=== PATIENT | male | born 1945 | race Caucasian/White ===

== ENCOUNTER → 2016-09-01 | Outpatient (CLI) | payer MEDICARE, OTHER ==
--- NOTE | 2016-09-01 12:15 | US ---
EXAM DESCRIPTION: Renal ultrasound CLINICAL HISTORY: 70 years Male, CHRONIC KIDNEY DISEASE STAGE 3 TECHNIQUE: Grayscale imaging of the kidneys was performed. FINDINGS: The right kidney measures 10.8 cm in diameter. The left kidney measures 9.7 cm in diameter. The echogenic when compared to the liver. Roughly 7-8 mm stones noted within the right kidney and the left kidney. IMPRESSION: There is bilateral nephrolithiasis without evidence of obstruction. These densities measure approximately 7 -8 mm in diameter on both sides. Echogenic kidneys which can be seen in setting of medical renal disease. Electronically signed by: Jeff Wolff MD 09/01/2016 12:14 PM CDT
== END | disposition home or self-care (01) ==
LOC: US 09:06
PROVIDERS: ATTEND Student in an Organized Health Care Education/Training Program
DX: N18.3 Chronic kidney disease, stage 3 (moderate) (principal)

== ENCOUNTER → 2016-09-11 | Outpatient (CLI) | payer MEDICARE, OTHER | END | disposition home or self-care (01) | LOC: LAB.O 10:10 | PROVIDERS: ATTEND Student in an Organized Health Care Education/Training Program | DX: N18.3 Chronic kidney disease, stage 3 (moderate) (principal); D63.1 Anemia in chronic kidney disease; N39.0 Urinary tract infection, site not specified ==

== ENCOUNTER → 2017-03-31 | Outpatient (CLI) | payer MEDICARE, OTHER | LOC: LAB.O 14:10 | PROVIDERS: ATTEND Student in an Organized Health Care Education/Training Program | DX: N18.3 Chronic kidney disease, stage 3 (moderate) (principal); I10 Essential (primary) hypertension; E11.9 Type 2 diabetes mellitus without complications; E55.9 Vitamin D deficiency, unspecified; N39.0 Urinary tract infection, site not specified ==

== ENCOUNTER → 2017-04-13 | Outpatient (CLI) | payer MEDICARE, OTHER | END | disposition home or self-care (01) | LOC: LAB.O 08:05 | PROVIDERS: ATTEND General Practice | DX: E11.9 Type 2 diabetes mellitus without complications (principal); N18.9 Chronic kidney disease, unspecified; E66.01 Morbid (severe) obesity due to excess calories; R35.8 Other polyuria ==

== ENCOUNTER 2017-06-30 20:24 | Emergency (ER) | payer MEDICARE, OTHER ==
[2017-06-30] MEDS ORDERED: IPRATROPIUM/ALBUTEROL 3 ML VIAL NEB ONE (22:24)
[2017-06-30] MEDS ORDERED: predniSONE 20 MG TAB PO ONE (22:24)
--- NOTE | 2017-06-30 22:52 | RAD ---
EXAM DESCRIPTION: Chest,2 Views CLINICAL HISTORY: 71 years Male, sob COMPARISON: April 24, 2016. FINDINGS: Heart size is within normal limits. Hilar and mediastinal structures appear essentially unremarkable. The lungs are clear except for minimal linear subsegmental atelectasis or scarring in the left costophrenic angle. There is no evidence of pneumothorax or pleural effusion or congestive heart failure. No significant interval change is seen compared to the previous study. Note is made of degenerative changes in the thoracic spine and old right-sided rib fractures. IMPRESSION: No radiographic evidence of acute cardiopulmonary disease. Electronically signed by: Omari Rodriguez 06/30/2017 10:51 PM [facility]
--- NOTE | 2017-06-30 23:29 | ED.PDOC ---
History of Present Illness - General Chief Complaint: Respiratory Problem Stated Complaint: cough congestion x 3 weeks Time Seen by Provider: 06/30/17 22:24 Source: patient Exam Limitations: no limitations - History of Present Illness Initial Comments: the patient is a 71-year-old male with history of COPD but not taking any medications for presenting with cough and worsening shortness of breath progressive over the last 6 weeks. He is also living with his grandson who was diagnosed with flu B last week. This patient has had something of a cough and runny nose as well. He does smoke and has smoked for a very long time. His cough is minimally productive. No syncope or near-syncope. No chest pain. He actually went underwent multiple rounds of antibiotics at the outpatient clinic over the past 6 weeks. Timing/Duration: unsure Severity: moderate Improving Factors: nothing Worsening Factors: nothing Associated Symptoms: cough, malaise, shortness of breath Allergies/Adverse Reactions: Allergies NO KNOWN ALLERGY Allergy (Verified 04/24/16 07:49) Home Medications: Ambulatory Orders Aspirin [Aspirin Childrens] 81 mg PO DAILY 09/25/15 Glipizide 10 mg PO DAILY 09/25/15 Liraglutide [Victoza] 18 mg SC DAILY 09/25/15 Lisinopril 5 mg PO DAILY 04/24/16 Pantoprazole Sodium 20 mg PO DAILY 04/24/16 Trazodone HCl 150 mg PO BEDTIME 04/24/16 Review of Systems - Review of Systems Constitutional: States: malaise EENTM: States: nose congestion Respiratory: States: cough, short of breath, wheezing Cardiology: States: no symptoms reported Gastrointestinal/Abdominal: States: no symptoms reported Genitourinary: States: no symptoms reported Musculoskeletal: States: no symptoms reported Skin: States: no symptoms reported Neurological: States: no symptoms reported Endocrine: States: no symptoms reported All other Systems: No Change from Baseline Past Medical History (General) - Patient Medical History Hx Seizures: No Hx Stroke: No Hx Dementia: No Hx Asthma: No Hx of COPD: No Hx Cardiac Disorders: No Hx Congestive Heart Failure: No Hx Pacemaker: No Hx Hypertension: No Hx Thyroid Disease: No Hx Diabetes: Yes Hx Gastroesophageal Reflux: Yes Hx Renal Disease: No Hx Cancer: No Hx of HIV: No Hx Hepatitis C: No Hx MRSA: No - Vaccination History Hx Tetanus, Diphtheria Vaccination: No Hx Influenza Vaccination: No Hx Pneumococcal Vaccination: No - Social History Hx Tobacco Use: Yes Hx Chewing Tobacco Use: No Hx Alcohol Use: Yes Hx Substance Use: No Hx Substance Use Treatment: No Hx Depression: No Hx Physical Abuse: No Hx Emotional Abuse: No Hx Suspected Abuse: No - Female History Patient : No - Triage Comment ED Triage Comment: Presents to ED---POv--Amb.---c/o cough, congestion, PC cought darl odom color, known smoker, x 3weeks now. Family Medical History - Family History Mother Family History: Unknown Living Status: Physical Exam - Physical Exam General Appearance: Alert, Comfortable, No apparent distress Eye Exam: bilateral normal Ears, Nose, Throat: hearing grossly normal, normal ENT inspection, normal pharynx Neck: non-tender, full range of motion, supple Respiratory: chest non-tender, no respiratory distress, no accessory muscle use , rhonchi - cattered, wheezing - scattered Cardiovascular/Chest: normal peripheral pulses, regular rate, rhythm, no edema Peripheral Pulses: radial,right: 2+, radial,left: 2+, dorsalis pedis,right: 2+, dorsalis pedis,left: 2+ Gastrointestinal/Abdominal: non tender, soft Rectal Exam: deferred Back Exam: normal inspection, no CVA tenderness, no vertebral tenderness Extremity: normal range of motion, non-tender, normal inspection, normal capillary refill 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 The patient will be written for a Combivent inhaler as well as duo nebs and a nebulizer machine. He can get filled whichever is cheaper for him. He'll also be placed on prednisone for the next week at 20 mg daily. He is also going to be placed on the treatment course of Tamiflu given his direct recent exposure and his history of COPD. The patient is to stop smoking. He is not hypoxic or in respiratory distress. ER warnings were given for any significant worsening. He should follow up with his primary care doctor early next week. - Results/Orders Results/Orders: chest x-ray shows no definitive infiltrate. He does have changes consistent with COPD. EKG shows normal sinus rhythm with a first-degree AV block and a right bundle branch block. No acute definitive ST segment changes otherwise. Normal QT corrected interval. Departure - Departure Clinical Impression: COPD with acute exacerbation Disposition: Discharge to Home or Self Care Condition: Good Departure Forms: ED Discharge - Pt. Copy, Patient Portal Self Enrollment Instructions: DI for Chronic Obstructive Pulmonary Disease Diet: regular diet Activity: increase activity as tolerated Referrals: New Gu MD [Primary Care Provider] - 1-5 Days Home Medications: Ambulatory Orders Aspirin [Aspirin Childrens] 81 mg PO DAILY 09/25/15 Glipizide 10 mg PO DAILY 09/25/15 Liraglutide [Victoza] 18 mg SC DAILY 09/25/15 Lisinopril 5 mg PO DAILY 04/24/16 Pantoprazole Sodium 20 mg PO DAILY 04/24/16 Trazodone HCl 150 mg PO BEDTIME 04/24/16 Additional Instructions: the patient is a 71-year-old male presenting with what appears to be a COPD exacerbation. The patient will be written for a Combivent inhaler as well as duo nebs and a nebulizer machine. He can get filled whichever is cheaper for him. He'll also be placed on prednisone for the next week at 20 mg daily. He is also going to be placed on the treatment course of Tamiflu given his direct recent exposure and his history of COPD. The patient is to stop smoking. He is not hypoxic or in respiratory distress. ER warnings were given for any significant worsening. He should follow up with his primary care doctor early next week.
[2017-07-01 00:02] VITALS: BP 116/66; TEMP 95.8; O2SAT 98
== END 2017-07-01 00:03 | disposition home or self-care (01) ==
LOC: ER 20:24
DX: J44.1 Chronic obstructive pulmonary disease with (acute) exacerbation (principal); I44.0 Atrioventricular block, first degree; I45.10 Unspecified right bundle-branch block; E11.9 Type 2 diabetes mellitus without complications; K21.9 Gastro-esophageal reflux disease without esophagitis; Z87.891 Personal history of nicotine dependence; Z79.82 Long term (current) use of aspirin
CPT/HCPCS: 71046; 93005; 94640; J7512; J7620

== ENCOUNTER → 2017-11-25 | Outpatient (CLI) | payer MEDICARE, OTHER | LOC: LAB.O 08:55 | PROVIDERS: ATTEND Student in an Organized Health Care Education/Training Program | DX: N18.3 Chronic kidney disease, stage 3 (moderate) (principal); I10 Essential (primary) hypertension; E11.9 Type 2 diabetes mellitus without complications; G47.33 Obstructive sleep apnea (adult) (pediatric); D63.1 Anemia in chronic kidney disease; N25.81 Secondary hyperparathyroidism of renal origin; E55.9 Vitamin D deficiency, unspecified; E87.8 Other disorders of electrolyte and fluid balance, not elsewhere classified; N39.0 Urinary tract infection, site not specified; Z72.0 Tobacco use ==

== ENCOUNTER → 2018-05-27 | Outpatient (CLI) | payer MEDICARE, OTHER | LOC: LAB.O 12:40 | PROVIDERS: ATTEND Student in an Organized Health Care Education/Training Program | DX: N18.3 Chronic kidney disease, stage 3 (moderate) (principal); D63.1 Anemia in chronic kidney disease; N25.81 Secondary hyperparathyroidism of renal origin; E55.9 Vitamin D deficiency, unspecified; N39.0 Urinary tract infection, site not specified ==

== ENCOUNTER 2018-12-12 20:29 | Emergency (ER) | payer MEDICARE, OTHER ==
--- NOTE | 2018-12-12 20:48 | ED.PDOC ---
History of Present Illness - General Chief Complaint: General Stated Complaint: cramped pointer finger, arm pain, hip pain Time Seen by Provider: 12/12/18 20:44 Source: RN notes reviewed, EMS notes reviewed Additional Information: 73 YEAR OLD WHITE MALE PRESENTS WITH SUDDEN ONSET OF PAIN IN THE LEFTINDEX FINGER WHEREIN HE FELT HE COULD NOT FLEX THE INTER PHALANGEAL JOINTS HE ALSO EXPERIENCED PAIN RADIATING TO THE FOREARM HE REPORTS NO NUMBNESS WEAKNESS EITHER IN THE HAND ARM LEG OR HIS FACE AT THE TIME OF EXAM HIS SYMPTOMS ARE TOTALLY RESOLVED AND HE FEELS BACK TO HIS NORMAL STATE OF HEALTH - History of Present Illness Timing/Duration: unsure Severity: mild Improving Factors: nothing Associated Symptoms: denies symptoms Allergies/Adverse Reactions: Allergies NO KNOWN ALLERGY Allergy (Verified 12/12/18 20:51) Home Medications: Ambulatory Orders Aspirin [Aspirin Childrens] 81 mg PO DAILY 09/25/15 Glipizide 10 mg PO DAILY 09/25/15 Liraglutide [Victoza] 18 mg SC DAILY 09/25/15 Lisinopril 5 mg PO DAILY 04/24/16 Pantoprazole Sodium 20 mg PO DAILY 04/24/16 Trazodone HCl 150 mg PO BEDTIME 04/24/16 Review of Systems - Review of Systems Constitutional: States: no symptoms reported EENTM: States: no symptoms reported Respiratory: States: no symptoms reported Cardiology: States: no symptoms reported Gastrointestinal/Abdominal: States: no symptoms reported Genitourinary: States: no symptoms reported Musculoskeletal: States: no symptoms reported Skin: States: no symptoms reported Neurological: States: no symptoms reported Endocrine: States: no symptoms reported Hematologic/Lymphatic: States: no symptoms reported Past Medical History (General) - Patient Medical History Hx Seizures: No Hx Stroke: No Hx Dementia: No Hx Asthma: No Hx of COPD: No Hx Cardiac Disorders: No Hx Congestive Heart Failure: No Hx Pacemaker: No Hx Hypertension: No Hx Thyroid Disease: No Hx Diabetes: Yes Hx Gastroesophageal Reflux: Yes Hx Renal Disease: No Hx Cancer: No Hx of HIV: No Hx Hepatitis C: No Hx MRSA: No - Vaccination History Hx Tetanus, Diphtheria Vaccination: No Hx Influenza Vaccination: No Hx Pneumococcal Vaccination: No - Social History Hx Tobacco Use: Yes Hx Chewing Tobacco Use: No Hx Alcohol Use: Yes Hx Substance Use: No Hx Substance Use Treatment: No Hx Depression: No Hx Physical Abuse: No Hx Emotional Abuse: No Hx Suspected Abuse: No - Female History Patient : No Family Medical History - Family History Mother Family History: Unknown Living Status: Physical Exam - Physical Exam General Appearance: Alert Eye Exam: bilateral normal Ears, Nose, Throat: hearing grossly normal, normal ENT inspection, normal pharynx Neck: non-tender, full range of motion, supple Respiratory: chest non-tender, lungs clear, normal breath sounds, no respiratory distress, no accessory muscle use Cardiovascular/Chest: normal peripheral pulses, regular rate, rhythm, no edema, no gallop, no JVD Peripheral Pulses: radial,right: 2+, radial,left: 2+, femoral,right: 2+, femoral,left: 2+, popliteal,right: 2+, popliteal,left: 2+ Gastrointestinal/Abdominal: normal bowel sounds, non tender, soft, no organomegaly, no pulsatile mass Back Exam: normal inspection, no CVA tenderness, no vertebral tenderness 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 Copy, Patient Portal Self Enrollment Referrals: New Gu MD [Primary Care Provider] - 1-2 Weeks Home Medications: Ambulatory Orders Aspirin [Aspirin Childrens] 81 mg PO DAILY 09/25/15 Glipizide 10 mg PO DAILY 09/25/15 Liraglutide [Victoza] 18 mg SC DAILY 09/25/15 Lisinopril 5 mg PO DAILY 04/24/16 Pantoprazole Sodium 20 mg PO DAILY 04/24/16 Trazodone HCl 150 mg PO BEDTIME 04/24/16
[2018-12-12 20:50] VITALS: TEMP 98.2; O2SAT 99
[2018-12-12 21:43] VITALS: BP 114/88
== END 2018-12-12 21:55 | disposition home or self-care (01) ==
LOC: ER 20:29
DX: G62.9 Polyneuropathy, unspecified (principal); E11.9 Type 2 diabetes mellitus without complications; K21.9 Gastro-esophageal reflux disease without esophagitis; Z87.891 Personal history of nicotine dependence; Z79.82 Long term (current) use of aspirin; Z79.899 Other long term (current) drug therapy

== ENCOUNTER → 2019-02-02 | Outpatient (CLI) | payer MEDICARE, OTHER | LOC: LAB.O 08:55 | PROVIDERS: ATTEND Student in an Organized Health Care Education/Training Program | DX: N18.3 Chronic kidney disease, stage 3 (moderate) (principal); I10 Essential (primary) hypertension; E11.9 Type 2 diabetes mellitus without complications; G47.33 Obstructive sleep apnea (adult) (pediatric); E55.9 Vitamin D deficiency, unspecified; N25.81 Secondary hyperparathyroidism of renal origin; Z72.0 Tobacco use ==

== ENCOUNTER → 2019-02-15 | Outpatient (CLI) | payer MEDICARE, OTHER | LOC: LAB.O 08:04 | PROVIDERS: ATTEND General Practice | DX: E11.9 Type 2 diabetes mellitus without complications (principal); E66.01 Morbid (severe) obesity due to excess calories; N18.9 Chronic kidney disease, unspecified; J44.9 Chronic obstructive pulmonary disease, unspecified; N42.9 Disorder of prostate, unspecified ==

== ENCOUNTER → 2019-02-20 | Outpatient (CLI) | payer MEDICARE, OTHER | LOC: LAB.O 12:18 | PROVIDERS: ATTEND Student in an Organized Health Care Education/Training Program | DX: N18.3 Chronic kidney disease, stage 3 (moderate) (principal); E55.9 Vitamin D deficiency, unspecified; D63.1 Anemia in chronic kidney disease; N39.0 Urinary tract infection, site not specified; N25.81 Secondary hyperparathyroidism of renal origin; E11.9 Type 2 diabetes mellitus without complications ==

== ENCOUNTER → 2019-10-31 | Outpatient (CLI) | payer MEDICARE, OTHER | LOC: LAB.O 07:54 | PROVIDERS: ATTEND General Practice | DX: I10 Essential (primary) hypertension (principal); E11.9 Type 2 diabetes mellitus without complications; N42.9 Disorder of prostate, unspecified ==

== ENCOUNTER → 2020-03-12 | Outpatient (CLI) | payer MEDICARE, OTHER | LOC: LAB.O 08:30 | PROVIDERS: ATTEND General Practice | DX: E11.9 Type 2 diabetes mellitus without complications (principal); I10 Essential (primary) hypertension; R53.83 Other fatigue; Z12.5 Encounter for screening for malignant neoplasm of prostate | CPT/HCPCS: 36415; 80053; 80061; 83036; G0103 ==

== ENCOUNTER → 2020-04-11 | Outpatient (CLI) | payer MEDICARE, OTHER ==
--- NOTE | 2020-04-11 14:27 | RAD ---
EXAM DESCRIPTION: Shoulder,Right 2 or More Views CLINICAL HISTORY: pain in right shoulder COMPARISON: None Available. TECHNIQUE: X-ray 4 views right shoulder FINDINGS: There is good internal and external rotation. There is no fracture or bone lesion. Calcification in the rotator cuff noted on AP views. IMPRESSION: 1. Calcific tendinitis rotator cuff Electronically signed by: Rizwan Hilliard MD 04/11/2020 2:25 PM [facility]
== END ==
LOC: RAD 08:01
PROVIDERS: ATTEND Orthopaedic Surgery
DX: M75.81 Other shoulder lesions, right shoulder (principal)

== ENCOUNTER 2020-05-03 10:08 | Inpatient (IN) | payer MEDICARE, OTHER ==
[2020-05-03] MEDS ORDERED: ONDANSETRON INJ 4 MG/2 ML VIAL IV ONE (10:10)
[2020-05-03] MEDS ORDERED: SODIUM CHLORIDE 0.9% (FLUSH) 10 ML SYG IV PRN ×2 (10:10→18:55)
[2020-05-03] MEDS ORDERED: SODIUM CHLORIDE 0.9% 1000ML 1,000 ML IVS ONE ×3 (10:11→15:49)
--- NOTE | 2020-05-03 10:12 | ED.PDOC ---
History of Present Illness - General Time Seen by Provider: 05/03/20 10:10 Source: patient - History of Present Illness Initial Comments: 74-year-old male with past medical history of GERD, hypertension, diabetes who presents with chief complaint of nausea, vomiting, diarrhea. Rapid onset around 2 hours ago at home. Reports has had several rounds of nonbloody nonbilious emesis which looks like the spicy Cheetos he ate last night. He also reports ab out 7 episodes of dark watery diarrhea. In addition he has constant mild 3/10 severity abdominal discomfort to the left lower quadrant without radiation, slightly worse with vomiting or diarrhea, no medications taken for relief. He also reports he broke out into a cold sweat earlier which is now resolved. Denies any chest pain, cough, dyspnea, fevers, sore throat. He does report history of reflux and history of upper GI bleed 12 years ago. Allergies/Adverse Reactions: Allergies NO KNOWN ALLERGY Allergy (Verified 12/12/18 20:51) Home Medications: Ambulatory Orders Aspirin [Aspirin Childrens] 81 mg PO DAILY 09/25/15 Glipizide 10 mg PO DAILY 09/25/15 Liraglutide [Victoza] 18 mg SC DAILY 09/25/15 Lisinopril 5 mg PO DAILY 04/24/16 Pantoprazole Sodium 20 mg PO DAILY 04/24/16 Trazodone HCl 150 mg PO BEDTIME 04/24/16 Review of Systems - Review of Systems Review of Systems: 05/03/20 10:28 as per HPI All other Systems: Reviewed and Negative Past Medical History (General) - Patient Medical History Hx Seizures: No Hx Stroke: No Hx Dementia: No Hx Asthma: No Hx of COPD: No Hx Cardiac Disorders: No Hx Congestive Heart Failure: No Hx Pacemaker: No Hx Hypertension: No Hx Thyroid Disease: No Hx Diabetes: Yes Hx Gastroesophageal Reflux: Yes Hx Renal Disease: No Hx Cancer: No Hx of HIV: No Hx Hepatitis C: No Hx MRSA: No - Vaccination History Hx Tetanus, Diphtheria Vaccination: No Hx Influenza Vaccination: No Hx Pneumococcal Vaccination: No - Social History Hx Tobacco Use: Yes Hx Chewing Tobacco Use: No Hx Alcohol Use: Yes Hx Substance Use: No Hx Substance Use Treatment: No Hx Depression: No Hx Physical Abuse: No Hx Emotional Abuse: No Hx Suspected Abuse: No - Female History Patient : No Family Medical History - Family History Mother Family History: Unknown Living Status: Physical Exam - Physical Exam General Appearance: Alert, Comfortable, No apparent distress, Obese Eye Exam: bilateral normal Ears, Nose, Throat: normal ENT inspection, normal pharynx Neck: non-tender, full range of motion, supple, normal inspection Respiratory: chest non-tender, lungs clear, normal breath sounds, no respiratory distress, no accessory muscle use Cardiovascular/Chest: normal peripheral pulses, no edema, no gallop, no JVD, no murmur, tachycardia Peripheral Pulses: radial,right: 2+, radial,left: 2+ Gastrointestinal/Abdominal: non tender, soft, no organomegaly, abnormal bowel sounds - hyperactive Back Exam: normal inspection, no CVA tenderness, no vertebral tenderness Extremity: normal range of motion, non-tender, normal inspection, no pedal edema, no calf tenderness 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 difficile, colitis, ischemic colitis, pancreatitis, UTI, viral infection, COVID-19, flu, other -Obtain blood work, lactate, rapid Covid and flu, abdominal work-up, stool cultures -Place PIV, 1 L normal saline bolus, Zofran 4 mg IV 05/03/20 16:04 -Patient's labs revealed WBC 13,000 with left shift without bandemia. Lactic acid initially 2.9, improved to 2.6 after 2 L IV fluid bolus. Rapid flu and Covid testing were negative. otherwise patient does have mild acute kidney injury likely from dehydration and gastroenteritis. His heart rate is improved but still with tachycardia, around 110 currently. Otherwise he remained stable and states he is feeling much better. His stool occult blood was negative. Stool studies were sent. CT imaging revealed fluid-filled small bowel consistent with likely enteritis. There was diverticulosis without evidence of diverticulitis. No other evidence of focal bacterial infection was noted. -I discussed all of the findings with the patient. Advised we will need to admit for acute gastroenteritis, sepsis, lactic acidosis, moderate dehydration. Blood cultures were drawn and will begin broad-spectrum IV antibiotics with Zosyn 3.375 g IV. We will give another 1 L NS bolus. -I discussed the patient with Mary Judd who accepts for admission Parker Balderrama MD Billing #[id number] 05/03/20 10:10 Sodium Chloride 0.9% (Flush) [Saline Flush Syringe] 10 ml IV PRN PRN 05/03/20 10:30 EKG STAT 05/03/20 11:16 Hold Metformin x 48Hrs [id number] 05/03/20 12:05 BLOOD CULTURE Stat 05/03/20 12:57 CLOSTRIDIUM DIFFICILE AG/TOXIN Stat STOOL CULTURE Stat 05/03/20 15:49 Piperacillin/Tazobactam [Zosyn] 3.375 gm Sodium Chloride 0.9% 100Ml [NS (NACL 0.9%) 100ml] 100 ml IVPB ONCE Sodium Chloride 0.9% 1000ML [Ns 1000 ml] 1,000 ml IVS ONCE Laboratory Results - last 24 hr 05/03/20 05/03/20 05/03/20 10:25 10:25 10:25 WBC 13.2 H RBC 5.78 Hgb 19.6 H Hct 57.2 H MCV 99.1 H MCH 33.9 H MCHC 34.3 RDW 14.0 Plt Count 248 MPV 11.0 H Absolute Neuts (auto) 11.60 H Absolute Lymphs (auto) 0.90 L Absolute Monos (auto) 0.50 Absolute Eos (auto) 0.10 Absolute Basos (auto) 0.00 Neutrophils % 87.8 H Lymphocytes % 7.2 L Monocytes % 4.0 Eosinophils % 0.7 L Basophils % 0.3 Sodium 140 Potassium 4.0 Chloride 96 L Carbon Dioxide 31 Anion Gap 17.0 BUN 17 Creatinine 1.40 H BUN/Creatinine Ratio 12.1 Random Glucose 264 H Serum Osmolality 290.1 Lactic Acid Calcium 9.6 Total Bilirubin 0.9 Direct Bilirubin 0.1 Indirect Bilirubin 0.8 AST 22 ALT 23 Alkaline Phosphatase 123 H Troponin I Serum Total Protein 7.9 Albumin 4.2 Lipase 130 H Urine Color Urine Appearance Urine pH Ur Specific [place] Urine Protein Urine Glucose (UA) Urine Ketones Urine Blood Urine Nitrite Urine Bilirubin Urine Urobilinogen Ur Leukocyte Esterase Urine RBC Urine WBC Ur Epithelial Cells Calcium Oxalate Crystal Amorphous Sediment Urine Bacteria Stool Occult Blood 05/03/20 05/03/20 05/03/20 10:25 10:25 13:02 WBC RBC Hgb Hct MCV MCH MCHC RDW Plt Count MPV Absolute Neuts (auto) Absolute Lymphs (auto) Absolute Monos (auto) Absolute Eos (auto) Absolute Basos (auto) Neutrophils % Lymphocytes % Monocytes % Eosinophils % Basophils % Sodium Potassium Chloride Carbon Dioxide Anion Gap BUN Creatinine BUN/Creatinine Ratio Random Glucose Serum Osmolality Lactic Acid 2.9 H* Calcium Total Bilirubin Direct Bilirubin Indirect Bilirubin AST ALT Alkaline Phosphatase Troponin I < 0.02 Serum Total Protein Albumin Lipase Urine Color Urine Appearance Urine pH Ur Specific [place] Urine Protein Urine Glucose (UA) Urine Ketones Urine Blood Urine Nitrite Urine Bilirubin Urine Urobilinogen Ur Leukocyte Esterase Urine RBC Urine WBC Ur Epithelial Cells Calcium Oxalate Crystal Amorphous Sediment Urine Bacteria Stool Occult Blood Negative 05/03/20 05/03/20 14:46 15:15 WBC RBC Hgb Hct MCV MCH MCHC RDW Plt Count MPV Absolute Neuts (auto) Absolute Lymphs (auto) Absolute Monos (auto) Absolute Eos (auto) Absolute Basos (auto) Neutrophils % Lymphocytes % Monocytes % Eosinophils % Basophils % Sodium Potassium Chloride Carbon Dioxide Anion Gap BUN Creatinine BUN/Creatinine Ratio Random Glucose Serum Osmolality Lactic Acid 2.6 H* Calcium Total Bilirubin Direct Bilirubin Indirect Bilirubin AST ALT Alkaline Phosphatase Troponin I Serum Total Protein Albumin Lipase Urine Color Yellow Urine Appearance Clear Urine pH 5.5 Ur Specific [place] 1.010 Urine Protein Negative Urine Glucose (UA) 500 H Urine Ketones Trace Urine Blood Trace-intact H Urine Nitrite Negative Urine Bilirubin Negative Urine Urobilinogen 0.2 Ur Leukocyte Esterase Negative Urine RBC 1-3 Urine WBC 0 Ur Epithelial Cells 1-3 Calcium Oxalate Crystal 1+ Amorphous Sediment 1+ Urine Bacteria 0 Stool Occult Blood - EKG/XRAY/CT EKG: Sinus, Tachy - Sinus tachycardia with right bundle branch block, heart rate 130, no ST elevations noted, no Q waves, minimal ST segment depressions noted in anteroseptal leads likely repolarization abnormality, axis normal, intervals normal, compared to 06/30/2017 EKG sinus tachycardia appears new Departure - Departure Clinical Impression: Gastroenteritis, Lactic acidosis Sepsis Qualifiers: Sepsis type: sepsis due to unspecified organism Sepsis acute organ dysfunction status: without acute organ dysfunction Qualified Code(s): A41.9 - Sepsis, unspecified organism Time of Disposition: 16:08 Disposition: Admit Patient Condition: Fair Diet: diabetic diet Referrals: New Gu MD [Primary Care Provider] - 1-2 Weeks Home Medications: Ambulatory Orders Aspirin [Aspirin Childrens] 81 mg PO DAILY 09/25/15 Glipizide 10 mg PO DAILY 09/25/15 Liraglutide [Victoza] 18 mg SC DAILY 09/25/15 Lisinopril 5 mg PO DAILY 04/24/16 Pantoprazole Sodium 20 mg PO DAILY 04/24/16 Trazodone HCl 150 mg PO BEDTIME 04/24/16 Decision To Admit - Decistion To Admit Decision to Admit Reason: Admit from ER Decision to Admit Date: 05/03/20 Decision to Admit Time: 16:08
--- NOTE | 2020-05-03 11:09 | RAD ---
EXAM DESCRIPTION: Chest,1 View x-ray CLINICAL HISTORY: 74 years Male, n/v/d, cold sweats COMPARISON: 06/30/2017 IMPRESSION: Heart size and pulmonary vascularity are within normal limits. Mild patchy bilateral airspace opacities, greatest in the left lower lung. The findings are concerning for multifocal pneumonia. Covid 19 may have this appearance. No pleural effusion or pneumothorax. No acute osseous abnormality. Electronically signed by: Aleksander Davey MD 05/03/2020 11:07 AM [facility]
[2020-05-03] MEDS ORDERED: ALUM & MAG HYDROX-SIMETHICONE 30 ML, LIDOCAINE VISCOUS 2% 15 ML PO ONE ×2 (13:43)
--- NOTE | 2020-05-03 14:16 | CT ---
EXAM: Abdomen/Pelvis w/Contrast INDICATION: LLQ pain, n/v/d . COMPARISON: CT abdomen pelvis with contrast 04/24/2016 TECHNIQUE: CT of the abdomen and pelvis was performed following the administration of IV contrast. Multiple axial images and multiplanar reconstructions were generated. This exam was performed according to our departmental dose-optimization program, which includes automated exposure control, adjustment of the mA and/or kV according to patient size and/or use of iterative reconstruction technique. FINDINGS: Visualized chest: The visualized lung bases are clear. Heart size is within normal limits. Liver: Unremarkable appearance of the liver. Gallbladder: The gallbladder is surgically absent. Pancreas: Unremarkable appearance of the pancreas. Spleen: Unremarkable appearance of the spleen. Adrenal glands: Unremarkable appearance of the adrenal glands. Kidneys, ureters, bladder: The left kidney is atrophic as noted on the prior examination. No striated nephrograms. No hydronephrosis. Bilateral nonobstructing renal stones. 1.5 cm right kidney lower pole parapelvic cyst (axial series 2 image 40). Unremarkable appearance of the visualized portions of the ureters. Unremarkable appearance of the urinary bladder. Stomach and bowel: The stomach is mildly distended with fluid but otherwise unremarkable. Several loops of fluid-filled small bowel are mildly distended but not frankly dilated. Colonic diverticulosis without evidence for acute diverticulitis. The appendix is identified and appears normal. Prostate: Prostatic calcifications are noted. Peritoneum: No free fluid. No pneumoperitoneum. Lymph nodes: No lymphadenopathy. Vasculature: An infrarenal abdominal aortic aneurysm has increased in size since the prior examination of 04/24/2016, now measuring up to approximately 4.6 cm in greatest diameter (axial series 2 image 36). 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 This aneurysm extends approximately 5.5-6 cm in craniocaudal dimension. Below this, the diameter of the aorta just above the iliac bifurcation measures up to 3 cm AP (axial series 2 image 44). Bones: No acute fracture. No destructive osseous lesion. Degenerative changes in the spine and hips. Body wall: Tiny fat-containing umbilical hernia. Otherwise unremarkable appearance of the visualized body wall soft tissues. IMPRESSION: 1. Several loops of fluid-filled small bowel are mildly distended but not frankly dilated. This could represent enteritis. No convincing evidence for mechanical bowel obstruction. 2. A 4.6 cm infrarenal abdominal aortic aneurysm has increased in size from the prior examination of 04/24/2016. Recommend follow-up every 6 months and vascular consultation. (J Am Amber Radiol 2013;10 (10):789-794.) 3. Colonic diverticulosis without evidence for acute diverticulitis. 4. Simple right renal cyst. 5. Atrophic left kidney. 6. Nonobstructing renal stones. 7. Cholecystectomy. 8. Additional findings as described above. Electronically signed by: Margaret Samano MD 05/03/2020 2:14 PM [facility]
[2020-05-03] MEDS ORDERED: PANTOPRAZOLE SODIUM IV 40 MG VIAL IV ONE (14:28)
[2020-05-03] MEDS ORDERED: PIPERACILLIN/TAZOBACTAM 3.375 GM in SODIUM CHLORIDE 0.9% 100ML 100 ML IVPB ONE (15:49)
--- NOTE | 2020-05-03 17:16 | HP ---
SUPERVISING PHYSICIAN: Jayce Vo MD CHIEF COMPLAINT: Nausea, vomiting, diarrhea. HISTORY OF PRESENT ILLNESS: This is a 73 year-old male patient who presented to the Emergency Room with several hours of nausea, vomiting, diarrhea. It is worse after he had several rounds of emesis as well as several-day episodes of dark, watery diarrhea. He did not think there was any blood in either. He had had some abdominal discomfort but mostly on the left side. He also said he had chills. He does have a history of gastroesophageal reflux disease, hypertension and diabetes. His initial vital signs were temperature 97, heart rate 136, blood pressure 104/71, respiratory rate 20, oxygen saturation 95%. Laboratory studies showed WBC of 13.2, hemoglobin 19.6, hematocrit 67.2. He had a left shift on his differential. Sodium 140, potassium 4, chloride 96, glucose 264. [id number] 10.7. Initial lactic acid 2.9. Followup lactic acid 2.6. Alkaline phosphatase 123, lipase 130. Urinalysis was unremarkable. Stool for occult blood was negative. Respiratory panel showed negative for Covid-19. Stool culture is pending. Influenza PCR both negative for A and B flu. Blood cultures were drawn. Chest x-ray shows heart size and pulmonary vascularity are within normal limits. Mild hazy bilateral airspace opacities greater in the left lower lung. The findings are concerning for multifocal pneumonia. Covid-19 may have this appearance. No osseous abnormalities. He was given several liters of fluids and Zosyn, Pantoprazole and Zofran. He was admitted to the Floor in stable condition. PAST MEDICAL HISTORY: 1. Diabetes mellitus type 2. 2. Renal insufficiency. 3. Gastroesophageal reflux disease. 4. Benign prostatic hypertrophy. 5. Kidney stones. 6. Tobacco abuse. PAST SURGICAL HISTORY: 1. Left ulnar nerve release. 2. Colonoscopy. 3. Bilateral orchiopexies for left testicular torsion. 4. Renal stents due to complications from kidney stones. CURRENT MEDICATIONS: Per the EMR awaiting verification. ALLERGIES: No known drug allergies. FAMILY HISTORY: Positive for colon cancer, rheumatoid arthritis, diabetes chronic obstructive pulmonary disease and alcoholism. SOCIAL HISTORY: He is retired. He currently smokes 3/4 to one pack of cigarettes daily. There is no history of illegal drug use or alcohol use. REVIEW OF SYSTEMS: GENERAL: Positive for chills, negative for fever or weight changes. HEENT: Negative for sinus symptoms, ear pain, vision changes, sore throat. RESPIRATORY: Negative for coughing, wheezing, shortness of breath CARDIAC: Negative for chest pain, palpitations, tachycardia. GI: As per history of present illness. GENITOURINARY: Negative for hematuria, dysuria, polyuria. SKIN: Negative for lesions or rashes. NEUROLOGICAL: Negative for headaches, dizziness or seizures. PHYSICAL EXAMINATION: VITAL SIGNS: Temperature 98.2, heart rate 110, blood pressure 134/100, respiratory rate 20, oxygen saturation 97% on room air. GENERAL: This is a 74 year-old male patient who is lying in his hospital bed. He is in no acute distress. HEENT: Normocephalic and atraumatic. Pupils are equal and reactive. Oropharynx is clear. NECK: Supple without mass. CHEST: Essentially clear to auscultation bilaterally. Somewhat diminished on the left side. CARDIOVASCULAR: Tachycardiac rate, regular rhythm. ABDOMEN: Soft, diffusely tender, especially on the left side. Bowel sounds are positive. SKIN: Warm and dry. NEUROLOGIC: Awake, alert, and oriented x3. Cranial nerves II through XII are grossly intact as tested. Labs and films are as per the history of present illness. ASSESSMENT: 1. Sepsis of unknown etiology, may be enteritis and/or left lower lobe pneumonia. 2. Enteritis. 3. Left lower lobe pneumonia, community acquired. 4. Renal insufficiency. 5. Nausea, vomiting, diarrhea and dehydration. 6. Diabetes mellitus type 2. 7. Tobacco abuse. PLAN: We will admit patient to the hospital. He will continue on Levaquin and Flagyl and will have aggressive pulmonary hygiene including p.r.n. and scheduled nebulizer treatments. He is on the insulin sliding scale protocol. He has Lovenox for DVT prophylaxis, PPI for ulcer prophylaxis. I have ordered labs for in the morning. I have also ordered vancomycin per pharmacy protocol due to sepsis of unknown etiology. We will continue to monitor him closely and follow as needed. #[id number] [facility]
[2020-05-03] MEDS ORDERED: ACETAMINOPHEN 325 MG TAB PO PRN (19:00)
[2020-05-03] MEDS ORDERED: IV SET AND CAP CHANGE INJ INJ SCH (19:00)
[2020-05-03] MEDS ORDERED: ALBUTEROL SULFATE 2.5 MG/3 ML VIAL NEB PRN (19:00)
[2020-05-03] MEDS ORDERED: ONDANSETRON INJ 4 MG/2 ML VIAL IV PRN (19:00)
[2020-05-03] MEDS ORDERED: GLUCAGON INJ 1 MG VIAL SUBCU PRN (19:22)
[2020-05-03] MEDS ORDERED: DEXTROSE 50% 25 GM/50 ML SYG IV PRN (19:22)
[2020-05-03] MEDS ORDERED: VANCOMYCIN PER PHARMACY INJ SCH (19:30)
[2020-05-03] MEDS ORDERED: levoFLOXacin 500MG IV 500 MG in PREMIX BAG 1 BAG IVPB ONE (19:30)
[2020-05-03] MEDS ORDERED: PIPERACILLIN/TAZOBACTAM 3.375 GM VIAL IVPB ONE (19:47)
[2020-05-03] MEDS ORDERED: ENOXAPARIN SODIUM 40 MG/0.4 ML SYG SUBCU ONE (19:48)
[2020-05-03] MEDS ORDERED: PANTOPRAZOLE SODIUM IV 40 MG VIAL ONE (19:48)
[2020-05-03] MEDS ORDERED: levoFLOXacin 500MG IV 100 ML IVPB ONE (19:48)
[2020-05-03] MEDS ORDERED: SODIUM CHLORIDE 0.9% 100ML 200 ML IVPB ONE (19:49)
[2020-05-03] MEDS ORDERED: METRONIDAZOLE 500 MG IVPB ONE (19:49)
[2020-05-03] MEDS ORDERED: IPRATROPIUM/ALBUTEROL 3 ML VIAL NEB ONE (20:06)
[2020-05-03] MEDS: metroNIDAZOLE IV PREMIX 500MG 500 MG in PREMIX BAG 1 BAG IVPB SCH (20:27)
[2020-05-03] MEDS: ENOXAPARIN SODIUM 40 MG/0.4 ML SYG SUBCU SCH (20:28)
[2020-05-03] MEDS: IPRATROPIUM/ALBUTEROL 3 ML VIAL INH SCH (22:30)
[2020-05-04] MEDS: PIPERACILLIN/TAZOBACTAM 3.375 GM in SODIUM CHLORIDE 0.9% 100ML 100 ML IVPB SCH ×2 (00:22→05:50)
[2020-05-04] MEDS: INSULIN LISPRO 100 UNITS/ML PEN SUBCU SCH ×5 (00:23→20:52)
[2020-05-04] MEDS ORDERED: GABAPENTIN 300 MG CAP ONE ×4 (01:32→19:48)
[2020-05-04] MEDS: GABAPENTIN 300 MG CAP PO SCH ×4 (01:35→20:47)
[2020-05-04] MEDS ORDERED: DEX 5% W/NACL 0.45% 1000ML 1,000 ML IVS ONE (04:02)
[2020-05-04] MEDS: DEX 5% W/NACL 0.45% 1000ML 1,000 ML IVS PRN ×2 (04:03→16:51)
[2020-05-04] MEDS: metroNIDAZOLE IV PREMIX 500MG 500 MG in PREMIX BAG 1 BAG IVPB SCH ×2 (04:06→12:02)
[2020-05-04] MEDS: PANTOPRAZOLE SODIUM IV 40 MG VIAL IV SCH ×2 (05:50→05:51)
--- NOTE | 2020-05-04 06:45 | RAD ---
EXAM: XR Chest, 2 Views CLINICAL HISTORY: The patient is 74 years old and is Male; Pneumonia TECHNIQUE: Frontal and lateral views of the chest. COMPARISON: Chest x-ray 05/03/2020. FINDINGS: Lungs: Haziness in the mid to lower lung delgado bilaterally suggestive of diffuse airspace disease or atelectasis. Pleural space: Unremarkable. No pneumothorax. Heart: Unremarkable. No cardiomegaly. Mediastinum: Unremarkable. Bones/joints: Unremarkable. IMPRESSION: Haziness in the mid to lower lung delgado bilaterally suggestive of diffuse airspace disease or atelectasis. Electronically signed by: Satya Barnett MD 05/04/2020 6:43 AM [employer]STRUMENT [employer]EL [employer]
[2020-05-04] MEDS ORDERED: INSULIN LISPRO 100 UNITS/ML PEN SUBCU ONE (07:12)
[2020-05-04] MEDS: IPRATROPIUM/ALBUTEROL 3 ML VIAL INH SCH ×4 (08:32→20:19)
[2020-05-04] MEDS ORDERED: levoFLOXacin 500MG IV 100 ML IVPB ONE (10:53)
[2020-05-04] MEDS: levoFLOXacin 500MG IV 500 MG in PREMIX BAG 1 BAG IVPB SCH (11:06)
[2020-05-04] MEDS ORDERED: IPRATROPIUM/ALBUTEROL 3 ML VIAL NEB ONE ×2 (11:56→19:39)
[2020-05-04] MEDS ORDERED: metroNIDAZOLE IV PREMIX 500MG 0 ML IVPB ONE ×2 (11:58→19:48)
[2020-05-04] MEDS ORDERED: VANCOMYCIN HCL INJ 1,000 MG, VANCOMYCIN HCL INJ 500 MG in SODIUM CHLORIDE 0.9% 250ML 25... IVPB SCH (13:00)
[2020-05-04] MEDS ORDERED: ENOXAPARIN SODIUM 40 MG/0.4 ML SYG SUBCU ONE (19:48)
[2020-05-04] MEDS ORDERED: PANTOPRAZOLE SODIUM IV 40 MG VIAL ONE (19:48)
[2020-05-04] MEDS ORDERED: ATORVASTATIN 10 MG TAB ONE (19:48)
[2020-05-04] MEDS ORDERED: metroNIDAZOLE IV PREMIX 500MG 100 ML IVPB ONE (19:52)
[2020-05-04] MEDS: ENOXAPARIN SODIUM 40 MG/0.4 ML SYG SUBCU SCH (20:47)
[2020-05-04] MEDS ORDERED: ATORVASTATIN 10 MG TAB PO SCH (21:00)
[2020-05-05] MEDS ORDERED: DEX 5% W/NACL 0.45% 1000ML 1,000 ML IVS ONE (03:44)
[2020-05-05] MEDS: DEX 5% W/NACL 0.45% 1000ML 1,000 ML IVS PRN (03:45)
[2020-05-05] MEDS: PANTOPRAZOLE SODIUM IV 40 MG VIAL IV SCH ×2 (06:10→06:11)
[2020-05-05] MEDS: INSULIN LISPRO 100 UNITS/ML PEN SUBCU SCH ×2 (07:16→12:11)
[2020-05-05] MEDS ORDERED: IPRATROPIUM/ALBUTEROL 3 ML VIAL NEB ONE ×2 (08:17→13:24)
[2020-05-05] MEDS: IPRATROPIUM/ALBUTEROL 3 ML VIAL INH SCH (08:45)
[2020-05-05] MEDS ORDERED: GABAPENTIN 300 MG CAP ONE (08:55)
[2020-05-05] MEDS ORDERED: levoFLOXacin 500MG IV 100 ML IVPB ONE (08:55)
[2020-05-05] MEDS: levoFLOXacin 500MG IV 500 MG in PREMIX BAG 1 BAG IVPB SCH (09:13)
[2020-05-05] MEDS: GABAPENTIN 300 MG CAP PO SCH (09:13)
--- NOTE | 2020-05-05 09:34 | PN ---
SUPERVISING PHYSICIAN: Jayce Vo MD DATE: 05/04/20 SUBJECTIVE: The patient says he is not having anymore abdominal issues, no nausea or vomiting. He is actually able to tolerate a diet. He does have a slight cough but is nonproductive. No abdominal pain. OBJECTIVE: VITAL SIGNS: Temperature 97.4, pulse 77, blood pressure 120/75, respirations 18, oxygen saturation 98% on room air. GENERAL: The patient looks to be resting comfortably. He does look a little tired but is no acute distress. He is alert. CHEST: Lung sounds were a little diminished towards the bases, no noticing any rhonchi, rales, or wheezes. HEART: Regular rate and rhythm. ABDOMEN: Obese, soft, non-tender, positive bowel sounds. EXTREMITIES: Without edema. NEUROLOGIC: Alert and oriented x 3. SKIN: Warm, pink and dry. LABORATORY: White count now normalized to 6,400, hemoglobin 14.9, hematocrit 14.5, platelet count 157,000, differential showing to be without a left shift. Chemistries are showing normal electrolytes with creatinine of 1.22. Blood sugars range between 151 and 253. Lactic acid normal at 1.4 which was down from admission of 2.9. Liver functions showing to be within normal limits. MICROBIOLOGY: C-difficile was negative. Blood cultures negative at 24 hours. RADIOLOGY: Chest x-ray this morning per radiology interpretation showed haziness in the mid to lower lung delgado bilateral suggestive of airspace disease or atelectasis. ASSESSMENT: 1. Sepsis likely due to some left lower lobe pneumonia. 2. Nausea, vomiting, diarrhea probably due to gastroenteritis with symptoms resolving. 3. Left lower lobe pneumonia, community acquired. 4. Renal insufficiency with creatinine now back to baseline levels, likely due to prerenal azotemia. 5. Diabetes mellitus type 2. 6. Chronic tobacco abuse. PLAN: We will continue with antibiotics at this point with Levaquin as he is showing some improvement. I don't see any outward signs of severe sepsis. Will continue with fluids and insulin protocol, DVT prophylaxis. I will recheck labs in the morning I have also discontinued his vancomycin and will reevaluate in the morning. Possibly anticipate discharging tomorrow if not, by Wednesday. Until then, we will continue to monitor and treat as needed. #[id number] [facility]
[2020-05-05 12:25] VITALS: BP 135/80; TEMP 97.9; O2SAT 96
--- NOTE | 2020-05-13 10:55 | DS ---
SUPERVISING PHYSICIAN: Jayce Vo MD ADMISSION DIAGNOSIS; 1. Sepsis of unknown etiology, may be enteritis and/or left lower lobe pneumonia. 2. Enteritis. 3. Left lower lobe pneumonia, community acquired. 4. Renal insufficiency. 5. Nausea, vomiting, diarrhea and dehydration. 6. Diabetes mellitus, type 2. 7. Tobacco abuse. DISCHARGE DIAGNOSIS: 1. Sepsis likely due to some left lower lobe pneumonia. 2. Nausea, vomiting, diarrhea probably due to gastroenteritis with symptoms resolving. 3. Left lower lobe pneumonia, community acquired. 4. Renal insufficiency with creatinine now back to baseline levels, likely due to prerenal azotemia. 5. Diabetes mellitus, type 2. 6. Chronic tobacco abuse. REASON FOR ADMISSION: This is a 73 year-old male patient who presented to the Emergency Room with several hours of nausea, vomiting, diarrhea. It is worse after he had several rounds of emesis as well as several-day episodes of dark, watery diarrhea. He did not think there was any blood in either. He had had some abdominal discomfort but mostly on the left side. He also said he had chills. He does have a history of gastroesophageal reflux disease, hypertension and diabetes. His initial vital signs were temperature 97, heart rate 136, blood pressure 104/71, respiratory rate 20, oxygen saturation 95%. Laboratory studies showed WBC of 13.2, hemoglobin 19.6, hematocrit 67.2. He had a left shift on his differential. Sodium 140, potassium 4, chloride 96, glucose 264. [id number] 10.7. Initial lactic acid 2.9. Followup lactic acid 2.6. Alkaline phosphatase 123, lipase 130. Urinalysis was unremarkable. Stool for occult blood was negative. Respiratory panel showed negative for COVID-19. Stool culture is pending. Influenza PCR both negative for A and B flu. Blood cultures were drawn. Chest x-ray shows heart size and pulmonary vascularity are within normal limits. Mild hazy bilateral airspace opacities greater in the left lower lung. The findings are concerning for multifocal pneumonia. COVID-19 may have this appearance. No osseous abnormalities. He was given several liters of fluids and Zosyn, Pantoprazole and Zofran. He was admitted to the Floor in stable condition. LABORATORY: White count on discharge was 6,400, hemoglobin 14.9, hematocrit 43.5, platelet count 157,000. Differential was without a left shift. Chemistries showed normal electrolytes, normal liver functions. Lactic acid normal at 1.4. Lipase 130 initially on admission. Lactic acid on admission was 2.9, prior to discharge was 1.4. HOSPITAL COURSE: Mr. Balderas was admitted for questionable sepsis secondary to left lower lobe pneumonia with some underlying gastroenteritis. He was given fluids and treated with antibiotics including Zosyn, Levaquin, vancomycin and Flagyl. He defervesced very well and was transitioned from antibiotic coverage as noted above to just Levaquin and stable, no longer having symptoms. I felt like he had clinical improvement enough to discharge home to continue with outpatient management. PLAN: Mr. Balderas was discharged to followup with Dr. Gu. He was to resume his medications as prior to hospitalization and then return to the ER if needed for any concerning symptoms. He was to resume usual diet including diabetic diet and increase activity as tolerated. Medications prescribed on discharge included Levaquin 500 mg for 5 days. No other medications were prescribed. CONDITION ON DISCHARGE: Stable and improved. DISPOSITION: The patient is discharged home. #[id number] [facility]
== END 2020-05-05 13:45 | disposition home or self-care (01) | DRG 871 ==
LOC: ER 10:08 → MS 17:13 → OBSVTOIN 17:13
PROVIDERS: ADMIT Nurse Practitioner Acute Care; ATTEND Nurse Practitioner Acute Care
DX: A41.9 Sepsis, unspecified organism (principal); J18.9 Pneumonia, unspecified organism; K52.9 Noninfective gastroenteritis and colitis, unspecified; N28.9 Disorder of kidney and ureter, unspecified; E11.9 Type 2 diabetes mellitus without complications; F17.210 Nicotine dependence, cigarettes, uncomplicated; E86.0 Dehydration; I10 Essential (primary) hypertension; K21.9 Gastro-esophageal reflux disease without esophagitis; N40.0 Benign prostatic hyperplasia without lower urinary tract symptoms; E66.9 Obesity, unspecified; Z79.1 Long term (current) use of non-steroidal anti-inflammatories (NSAID); Z79.4 Long term (current) use of insulin; Z79.899 Other long term (current) drug therapy; Z68.34 Body mass index [BMI] 34.0-34.9, adult

== ENCOUNTER 2020-06-04 14:12 | Emergency (ER) | payer MEDICARE, OTHER ==
[2020-06-04 16:19] VITALS: TEMP 98.2
--- NOTE | 2020-06-04 18:37 | ED.PDOC ---
History of Present Illness - General Chief Complaint: GI Problem Stated Complaint: abd cramping,nausea,diarrhea Time Seen by Provider: 06/04/20 15:10 Source: patient Exam Limitations: no limitations - History of Present Illness Initial Comments: ABD CRAMPS (RESOLVED IN ER), NAUSEA (RESOLVED IN ER), DIARRHEA X 2D. ABD CRAMPS AND NAUSEA OCCUR WHEN EATS SOMETHING. NO EMESIS. H/O LAP ROMI. VSS. Timing/Duration: intermittent Severity: mild Improving Factors: nothing Worsening Factors: eating Allergies/Adverse Reactions: Allergies NO KNOWN ALLERGY Allergy (Verified 05/03/20 20:36) Home Medications: Ambulatory Orders Aspirin [Aspirin Childrens] 81 mg PO DAILY 09/25/15 Liraglutide [Victoza] 1.8 mg SC DAILY 09/25/15 Lisinopril 5 mg PO DAILY 04/24/16 Pantoprazole Sodium 20 mg PO DAILY 04/24/16 Atorvastatin Calcium [Lipitor] 10 mg PO BEDTIME 05/03/20 Celecoxib [Celebrex] 200 mg PO Q12HRS PRN 05/03/20 Cholecalciferol [Vitamin D3 High Potency] 2,000 unit PO DAILY 05/03/20 Furosemide [Lasix] 20 mg PO LORETTA-OTH-DAY 05/03/20 Furosemide [Lasix] 40 mg PO LORETTA-OTH-DAY 05/03/20 Gabapentin 300 mg PO TID 05/03/20 Insulin Aspart [Novolog Flexpen] 100 unit SC 05/03/20 Insulin Degludec [Tresiba Flextouch] 200 unit SC 05/03/20 Meloxicam 15 mg PO DAILY 05/03/20 levoFLOXacin [Levaquin] 500 mg PO DAILY #5 tab 05/05/20 Ondansetron Odt [Zofran ODT] 8 mg SL TID PRN #15 tab 06/04/20 Review of Systems - Review of Systems Constitutional: Denies: chills, fever EENTM: Denies: ear pain, nose congestion Respiratory: Denies: cough, short of breath Cardiology: Denies: chest pain, palpitations Gastrointestinal/Abdominal: States: diarrhea. Denies: abdominal pain, constipation, nausea, vomiting Genitourinary: States: no symptoms reported Musculoskeletal: States: no symptoms reported Skin: States: no symptoms reported Neurological: States: no symptoms reported Endocrine: States: no symptoms reported Hematologic/Lymphatic: States: no symptoms reported All other Systems: Reviewed and Negative Past Medical History (General) - Patient Medical History Hx Seizures: No Hx Stroke: No Hx Dementia: No Hx Asthma: No Hx of COPD: No Hx Cardiac Disorders: No Hx Congestive Heart Failure: No Hx Pacemaker: No Hx Hypertension: Yes Hx Thyroid Disease: No Hx Diabetes: Yes Hx Gastroesophageal Reflux: Yes Hx Renal Disease: No Hx Cancer: No Hx of HIV: No Hx Hepatitis C: No Hx MRSA: No Surgical History: cholecystectomy - Vaccination History Hx Tetanus, Diphtheria Vaccination: No Hx Influenza Vaccination: No Hx Pneumococcal Vaccination: No - Social History Hx Tobacco Use: Yes Hx Chewing Tobacco Use: No Hx Alcohol Use: No Hx Substance Use: No Hx Substance Use Treatment: No Hx Depression: No Hx Physical Abuse: No Hx Emotional Abuse: No Hx Suspected Abuse: No - Female History Patient : No Family Medical History - Family History Mother Family History: Unknown Living Status: Physical Exam - Physical Exam General Appearance: Alert, Obese Eye Exam: bilateral normal Ears, Nose, Throat: hearing grossly normal, normal ENT inspection Neck: non-tender, full range of motion Respiratory: lungs clear, normal breath sounds Cardiovascular/Chest: regular rate, rhythm, no murmur Peripheral Pulses: radial,right: 2+, radial,left: 2+ Gastrointestinal/Abdominal: normal bowel sounds, non tender, soft, no organomegaly, no pulsatile mass, other - NO GUARDING/REBOUND. NTTP. Rectal Exam: deferred Back Exam: normal inspection, no CVA tenderness Extremity: normal inspection Neurologic: on air host II-XII nml as tested, no motor/sensory deficits, alert, normal mood/affect Skin Exam: normal color, warm/dry Lymphatic: no adenopathy Progress - Results/Orders Results/Orders: VIRAL GASTROENTERITIS - NAUSEA/DIARRHEA. RX ZOFRAN PRN NAUSEA. DEHYDRATION, POOR PO INTAKE, ARF (CR 1.66, WAS 1.22 ONE MONTH AGO) - BOLUSED. KETONURIA, GLUCOSURIA - IDDM. GLUCOSE 369 - IDDM. ELEV FROM IFXN. BOLUSED. VS WNL, SAFE FOR DC TO HOME. PUSH FLUIDS. ZOFRAN PRN. F/U W/ PCP TO ENSURE CREATININE IMPROVES FROM REHYDRATION. Departure - Departure Clinical Impression: Viral gastroenteritis, Dehydration, Diabetes mellitus, insulin dependent (IDDM), uncontrolled, Nausea, Glucosuria, Ketonuria ARF (acute renal failure) Qualifiers: Acute renal failure type: unspecified Qualified Code(s): N17.9 - Acute kidney failure, unspecified Diarrhea Qualifiers: Diarrhea type: infectious Qualified Code(s): A09 - Infectious gastroenteritis and colitis, unspecified Disposition: Discharge to Home or Self Care Condition: Good Departure Forms: ED Discharge - Pt. Copy, Patient Portal Self Enrollment Instructions: Viral Gastroenteritis, Child (DC) Diet: bland diet Activity: increase activity as tolerated Referrals: New Gu MD [Primary Care Provider] - 1-2 Weeks Prescriptions: Ondansetron Odt [Zofran ODT] 8 mg SL TID PRN #15 tab PRN Reason: Nausea Home Medications: Ambulatory Orders Aspirin [Aspirin Childrens] 81 mg PO DAILY 09/25/15 Liraglutide [Victoza] 1.8 mg SC DAILY 09/25/15 Lisinopril 5 mg PO DAILY 04/24/16 Pantoprazole Sodium 20 mg PO DAILY 04/24/16 Atorvastatin Calcium [Lipitor] 10 mg PO BEDTIME 05/03/20 Celecoxib [Celebrex] 200 mg PO Q12HRS PRN 05/03/20 Cholecalciferol [Vitamin D3 High Potency] 2,000 unit PO DAILY 05/03/20 Furosemide [Lasix] 20 mg PO LORETTA-OTH-DAY 05/03/20 Furosemide [Lasix] 40 mg PO LORETTA-OTH-DAY 05/03/20 Gabapentin 300 mg PO TID 05/03/20 Insulin Aspart [Novolog Flexpen] 100 unit SC 05/03/20 Insulin Degludec [Tresiba Flextouch] 200 unit SC 05/03/20 Meloxicam 15 mg PO DAILY 05/03/20 levoFLOXacin [Levaquin] 500 mg PO DAILY #5 tab 05/05/20 Ondansetron Odt [Zofran ODT] 8 mg SL TID PRN #15 tab 06/04/20 Additional Instructions: Get plenty of rest. You were very dehydrated in the ER, so please drink at lest 64 oz of water per day to stay hydrated. Please see you regular doctor this week to recheck your labs to ensure your kidney function returns back to normal.
[2020-06-04] MEDS ORDERED: SODIUM CHLORIDE 0.9% 1000ML 1,000 ML IVS ONE (19:14)
[2020-06-04 21:34] VITALS: O2SAT 95
[2020-06-04 21:42] VITALS: BP 122/80
== END 2020-06-04 21:43 | disposition home or self-care (01) ==
LOC: ER 14:12
DX: A08.4 Viral intestinal infection, unspecified (principal); E86.0 Dehydration; N17.9 Acute kidney failure, unspecified; R82.4 Acetonuria; R82.998 Other abnormal findings in urine; E11.65 Type 2 diabetes mellitus with hyperglycemia; I10 Essential (primary) hypertension; K21.9 Gastro-esophageal reflux disease without esophagitis; Z20.822 Contact with and (suspected) exposure to COVID-19; Z87.891 Personal history of nicotine dependence; Z79.4 Long term (current) use of insulin; Z79.899 Other long term (current) drug therapy; Z79.82 Long term (current) use of aspirin
CPT/HCPCS: 36415; 80053; 81001; 85025; 87502; 87635; J7030

== ENCOUNTER → 2020-06-24 | Outpatient (CLI) | payer MEDICARE, OTHER | LOC: LAB.O 09:25 | PROVIDERS: ATTEND Student in an Organized Health Care Education/Training Program | DX: N18.30 Chronic kidney disease, stage 3 unspecified (principal); N39.0 Urinary tract infection, site not specified; N25.81 Secondary hyperparathyroidism of renal origin; D63.1 Anemia in chronic kidney disease; E87.8 Other disorders of electrolyte and fluid balance, not elsewhere classified ==